=== PATIENT | female | born 1960 | race Caucasian/White ===

== ENCOUNTER → 2017-01-09 | Outpatient (CLI) | payer BC ==
[~2017-01-09] MED LIST: ARIMIDEX 1 MG TA1 MG PO; ASPIRIN81 MG PO; DAILY VITE1 EACH PO; LORAZEPAM0.5 MG PO; NEURONTIN 300300 MG PO; PERCOCET 5-3251 EACH PO
== END ==
DX: R00.0 Tachycardia, unspecified (principal); R00.2 Palpitations; R06.02 Shortness of breath

== ENCOUNTER → 2017-01-09 | Outpatient (CLI) | payer BC, SELFPAY | LOC: LAB 13:21 | DX: R00.0 Tachycardia, unspecified (principal) | CPT/HCPCS: 36415; 84443 ==

== ENCOUNTER → 2017-01-16 | Outpatient (CLI) | payer BC | LOC: HEART CORB 09:15 | DX: R00.0 Tachycardia, unspecified (principal); R06.02 Shortness of breath; R00.2 Palpitations | CPT/HCPCS: 93306 ==

== ENCOUNTER → 2017-02-04 | Outpatient (CLI) | payer BC | LOC: MAMO 09:20 | DX: C50.419 Malignant neoplasm of upper-outer quadrant of unspecified female breast (principal); Z98.890 Other specified postprocedural states | CPT/HCPCS: G0204 ==

== ENCOUNTER → 2017-08-09 | Day surgery (SDC) | payer BC, OTHER ==
[~2017-08-09] VITALS: Ht 160 cm; Wt 68.9 kg
[2017-08-09 09:03] LABS: HEMOGLOBIN 13.5 gm/dl (12.3-15.3); RED BLOOD COUNT 4.38 M/UL (4.00-5.10)
[2017-08-09 09:18] LABS: BUN/CREATININE RATIO 13 (0-10)
== END | disposition home or self-care (01) ==
LOC: OR 08:15
PROVIDERS: Orthopaedic Surgery
PROC: 01N50ZZ Release Median Nerve, Open Approach (ICD-10-PCS; principal; 2017-08-09 11:30)
DX: G56.02 Carpal tunnel syndrome, left upper limb (principal); J45.909 Unspecified asthma, uncomplicated; K21.9 Gastro-esophageal reflux disease without esophagitis; M19.90 Unspecified osteoarthritis, unspecified site; F17.210 Nicotine dependence, cigarettes, uncomplicated; Z79.899 Other long term (current) drug therapy
CPT/HCPCS: 36415; 80048; 85027; J0690; J2250; J2405; J3010; J7120

== ENCOUNTER → 2021-03-28 | Outpatient (CLI) | payer MEDICARE, OTHER ==
[~2021-03-28] MED LIST changes: +ARIMIDEX 1 MG TA1 MG GT; +CARAFATE1 GM PO; +VITAMIN D5000 UNIT PO
== END ==
LOC: MAMO 11:30
DX: Z12.31 Encounter for screening mammogram for malignant neoplasm of breast (principal)
CPT/HCPCS: 77063; 77067

== ENCOUNTER → 2021-04-11 | Outpatient (CLI) | payer MEDICARE, OTHER | LOC: US 13:11 | DX: N64.4 Mastodynia (principal); C50.419 Malignant neoplasm of upper-outer quadrant of unspecified female breast | CPT/HCPCS: 76641-LT; 76641-RT; 82270 ==

== ENCOUNTER → 2021-04-28 | Outpatient (CLI) | payer MEDICARE, OTHER | LOC: KOH-I 15:36 | DX: Z87.891 Personal history of nicotine dependence (principal); R91.8 Other nonspecific abnormal finding of lung field | CPT/HCPCS: 71271 ==

== ENCOUNTER → 2022-03-01 | Outpatient (CLI) | payer MEDICARE, OTHER | LOC: HEART 5 09:49 | DX: R07.9 Chest pain, unspecified (principal); R00.2 Palpitations; R94.39 Abnormal result of other cardiovascular function study | CPT/HCPCS: 93306 ==

== ENCOUNTER → 2022-03-29 | Outpatient (CLI) | payer MEDICARE, OTHER | LOC: MAMO 12:56 | DX: Z12.31 Encounter for screening mammogram for malignant neoplasm of breast (principal); R11.2 Nausea with vomiting, unspecified; M85.811 Other specified disorders of bone density and structure, right shoulder; Z98.890 Other specified postprocedural states; Z90.710 Acquired absence of both cervix and uterus | CPT/HCPCS: 77063; 77067 ==

== ENCOUNTER → 2022-04-10 | Outpatient (CLI) | payer MEDICARE, OTHER | LOC: US 15:00 | DX: R92.2 Inconclusive mammogram (principal); R11.2 Nausea with vomiting, unspecified; M85.811 Other specified disorders of bone density and structure, right shoulder | CPT/HCPCS: 76641 ==

== ENCOUNTER → 2022-05-01 | Outpatient (CLI) | payer MEDICARE, OTHER | END | disposition home or self-care (01) | LOC: US 09:46 | PROC: 0H9T3ZX Drainage of Right Breast, Percutaneous Approach, Diagnostic (ICD-10-PCS; principal; 2022-05-01) | DX: N64.89 Other specified disorders of breast (principal); M85.811 Other specified disorders of bone density and structure, right shoulder | CPT/HCPCS: 77065 ==

== ENCOUNTER → 2022-05-09 | Day surgery (SDC) | payer MEDICARE, OTHER ==
[~2022-05-09] MED LIST changes: +MIRALAX17 GM PO; +PROTONIX 40 MG40 M1 PO; +SIMVASTATIN10 MG PO
== END | disposition home or self-care (01) ==
LOC: OR 07:20
PROVIDERS: Internal Medicine Gastroenterology
PROC: 0DB78ZX Excision of Stomach, Pylorus, Via Natural or Artificial Opening Endoscopic, Diagnostic (ICD-10-PCS; 2022-05-09)
PROC: 0DB68ZX Excision of Stomach, Via Natural or Artificial Opening Endoscopic, Diagnostic (ICD-10-PCS; principal; 2022-05-09 09:00)
DX: K31.A0 Gastric intestinal metaplasia, unspecified (principal); K21.9 Gastro-esophageal reflux disease without esophagitis; E78.5 Hyperlipidemia, unspecified; K44.9 Diaphragmatic hernia without obstruction or gangrene; F17.290 Nicotine dependence, other tobacco product, uncomplicated; E66.3 Overweight; Z68.28 Body mass index [BMI] 28.0-28.9, adult; Z79.82 Long term (current) use of aspirin; Z79.899 Other long term (current) drug therapy
CPT/HCPCS: J2704; J7040

== ENCOUNTER → 2022-07-04 | Day surgery (SDC) | payer MEDICARE, OTHER | END | disposition home or self-care (01) | LOC: OR 06:10 | PROVIDERS: Internal Medicine Gastroenterology | PROC: 0DBP8ZZ Excision of Rectum, Via Natural or Artificial Opening Endoscopic (ICD-10-PCS; principal; 2022-07-04 07:30) | DX: Z12.11 Encounter for screening for malignant neoplasm of colon (principal); K62.1 Rectal polyp; K64.1 Second degree hemorrhoids; K29.50 Unspecified chronic gastritis without bleeding; K44.9 Diaphragmatic hernia without obstruction or gangrene; K21.9 Gastro-esophageal reflux disease without esophagitis; E66.01 Morbid (severe) obesity due to excess calories; Z68.28 Body mass index [BMI] 28.0-28.9, adult; Z79.82 Long term (current) use of aspirin; Z79.899 Other long term (current) drug therapy; Z85.3 Personal history of malignant neoplasm of breast; Z87.891 Personal history of nicotine dependence; Z91.040 Latex allergy status | CPT/HCPCS: J7040 ==